=== PATIENT | male | born 1980 | race Caucasian/White ===

== ENCOUNTER 2018-05-30 11:31 | Emergency (ER) | payer MEDICAID ==
[~2018-05-30] VITALS: Ht 180.3 cm; Wt 107.5 kg
[~2018-05-30 11:31] MED LIST: ALBU8.5H8 IH; FLO0.4C PO; HYDR-569 PO; NAPR-1154 PO
[2018-05-30] MEDS ORDERED: LIDOcaine 1.5% w/epinephrine 1:200,000 5ml ampul IJ ONE (12:30)
[2018-05-30] MEDS ORDERED: TETanus/Pertussis (Acell)/Diphther VAC/PF (Tdap-Adult) 0.5ml syringe IM ONE (12:30)
[2018-05-30] MEDS ORDERED: METF500T PO (13:22)
[2018-05-30] MEDS ORDERED: SULF1TAB48 PO (13:22)
[2018-05-30] MEDS ORDERED: HYDR-569 PO (13:22)
[2018-05-30 13:41] VITALS: BP 134/82
== END 2018-05-30 13:42 | disposition home or self-care (01) ==
LOC: ER 11:32
DX: L02.416 Cutaneous abscess of left lower limb (principal); L03.116 Cellulitis of left lower limb; E11.9 Type 2 diabetes mellitus without complications; Z90.49 Acquired absence of other specified parts of digestive tract; Z79.84 Long term (current) use of oral hypoglycemic drugs; Z79.899 Other long term (current) drug therapy
CPT/HCPCS: 82948; 87070; 87077; 87186; 90471; 90715; 99284; J3490

== ENCOUNTER 2024-01-03 10:15 | Emergency (ER) | payer MEDICAID ==
[~2024-01-03] VITALS: Ht 180.3 cm; Wt 93.8 kg
[~2024-01-03 10:15] MED LIST changes: +ALBU8.5H17 IH; -ALBU8.5H8 IH; +HYDR-4383 PO; -HYDR-569 PO
[2024-01-03 10:48] VITALS: TEMP 98.2
[2024-01-03 11:59] VITALS: BP 133/103; PULSE 93; O2SAT 99
[2024-01-03] MEDS: dexamethasone sod phosphate 10mg/ml inj PO STA (15:48)
[2024-01-03] MEDS ORDERED: AZIT250T PO (15:49)
[2024-01-03] MEDS ORDERED: ALBU8HFA INH (15:49)
[2024-01-03] MEDS ORDERED: PRED20TA PO (15:49)
[2024-01-03] MEDS: ipratropium/albuterol 3ml nebule NEB STA (16:00)
[2024-01-03 16:01] VITALS: RESP 17
== END 2024-01-03 16:05 | disposition home or self-care (01) ==
LOC: ER 10:16
DX: J20.9 Acute bronchitis, unspecified (principal); Z90.49 Acquired absence of other specified parts of digestive tract; Z79.899 Other long term (current) drug therapy
CPT/HCPCS: 71045; 99283; J1100

== ENCOUNTER 2025-02-19 10:06 | Emergency (ER) | payer MEDICAID ==
[~2025-02-19] VITALS: Ht 180.3 cm; Wt 90.0 kg
[~2025-02-19 10:06] MED LIST changes: +AZIT250T PO; -FLO0.4C PO; +TAMS-55 PO
[2025-02-19 10:08] VITALS: BP 120/87; PULSE 103; RESP 16; TEMP 98.4; O2SAT 99
[2025-02-19] MEDS ORDERED: SULF-14 PO (10:35)
[2025-02-19] MEDS ORDERED: CEPH-585 PO (10:35)
[2025-02-19] MEDS: cephalexin 250mg capsule PO ONE (10:39)
[2025-02-19] MEDS: sulfamethoxazole/trimethoprim DS (800/160mg) tablet PO ONE (10:39)
== END 2025-02-19 10:40 | disposition home or self-care (01) ==
LOC: ER 10:06
DX: K13.0 Diseases of lips (principal); Z90.49 Acquired absence of other specified parts of digestive tract; Z79.899 Other long term (current) drug therapy; Z79.84 Long term (current) use of oral hypoglycemic drugs
CPT/HCPCS: 99283

== ENCOUNTER 2025-06-11 10:29 | Emergency (ER) | payer MEDICAID ==
[~2025-06-11] VITALS: Ht 180.3 cm; Wt 89.4 kg
[~2025-06-11 10:29] MED LIST changes: +CEPH-585 PO; +SULF-14 PO
[2025-06-11 10:30] VITALS: BP 123/79; PULSE 86; RESP 16; TEMP 97.7; O2SAT 99
--- NOTE | 2025-06-11 11:06 | Physician Documentation ---
History of Present Illness ~ Chief Complaint: Bite-insect Stated Complaint: INSECT BITES Time Seen by MD: 11:00 OK to notify your PCP?: Yes Primary Medical Doctor: Herb Oropeza Source: patient Mode of Arrival: POV Exam Limitations: no limitations HPI 44-year-old male presents with bilateral arm wounds for the past 2 days. He has a history of MRSA. He states they started to look like insect bites but then t he redness has been spreading from his bilateral forearms up to his elbows and a couple of the sores have opened and had purulent drainage. Has not taken anything for the pain prior to arrival. Medication Reconciliation Allergies: Coded Allergies: No Known Allergies (Unverified , 06/11/25) Scheduled Azithromycin (Zithromax), 1 TAB PO UD Cephalexin*Monohydrate* (Keflex*), 1 CAP PO QID Cephalexin*Monohydrate* (Keflex*), 1 CAP PO Q8H Hydrocodone/Acetaminophen (Argyle 5-325 Tablet), 1 TAB PO TID PRN Hydrocodone/Acetaminophen (Argyle 5-325 Tablet), 1 TAB PO Q12H PRN Naproxen (Naprosyn), 1 TABLET PO BID Sulfamethoxazole/Trimethoprim (Septra Ds Tab), 1 TAB PO Q12H Sulfamethoxazole/Trimethoprim SS Tab* (Bactrim SS Tablet*), 1 TAB PO Q12H Tamsulosin Hcl* (Flomax*), 1 CAP PO DAILY Scheduled PRN Albuterol Sulfate (Proair Hfa), 2 PUFFS IH Q4H PRN for SOB or wheezing Hydrocodone/Acetaminophen (Argyle 5-325 Tablet), 1 TABLET PO TID PRN for pain Past Medical History Past Medical History: No Pertinent History Past Surgical History: cholecystectomy Alcohol Use: None Lives In: Home Review of Systems All Other Systems at this time: Reviewed and Negative Physical Exam Vital Signs: RN Vital Signs have been reviewed: Yes, Temperature: 97.7, Source: Oral, Heart Rate: 86, Respiratory Rate: 16, BP: 123/79, Pulse Oximetry: 99, Weig ht: 89.400 Oxygen Flow Rate: 0 Pulse Oximetry Reflects: adequate oxygenation Physical Exam General: Alert, no distress. HEENT: No injection, moist mucous membranes. Neck: Full range of motion. Respiratory: No respiratory distress, equal chest rise and fall. Chest: No accessory muscle use. Cardiovascular: Regular rate and rhythm. Gastrointestinal: Nondistended. Extremities: Normal range of motion, no deformity. Full range motion of both arms. Neurologic: Oriented x4. Psychiatric: Normal mood and affect. Skin: Right forearm: Erythematous, warmth, tenderness to palpation with multiple papules approximately 9 cm x 6 cm of swelling up to the elbow. Left forearm: Erythematous, warmth, tenderness to palpation with multiple papules approximately 5 cm x 6 cm, slight edema at site. Progress Results/Orders Reviewed/noted all lab results: Yes Results/Orders Completed Orders - AYLIN HANKINS [employer] Sulfamethox/Trimetho. Ds Tab (Septra Ds (06/11/25 11:05) Naproxen Tablet (Naprosyn Tablet) (06/11/25 11:05) Acetaminophen 325mg Tablet (Tylenol Tabl (06/11/25 11:05) Cephalexin Capsule (Keflex Capsule) (06/11/25 11:05) Medications Received in ER Medications (Trade) Dose Ordered Sig/Emy Route PRN Reason Start Time Stop Time Status Last Admin Dose Admin (Keflex capsule) 500 mg ONCE ONCE PO 06/11/25 11:05 06/11/25 11:07 DC 06/11/25 11:13 500 MG (Septra DS tab) 1 tab ONCE ONCE PO 06/11/25 11:05 06/11/25 11:10 DC 06/11/25 11:14 1 TAB (Naprosyn tablet) 500 mg ONCE ONCE PO 06/11/25 11:05 06/11/25 11:06 DC 06/11/25 11:14 500 MG (Tylenol tablet) 650 mg ONCE ONCE PO 06/11/25 11:05 06/11/25 11:06 DC 06/11/25 11:14 650 MG Vital Signs 06/11/25 10:30 Temp 97.7 Pulse 86 Resp 16 B/P (MAP) 123/79 Pulse Ox 99 O2 Flow Rate 0 Medical Decision Making Additional info obtained from: old records Findings 44-year-old male with bilateral forearm wounds. History of MRSA so I treated with Septra and Keflex 1st dose given in the department the rest sent to the pharmacy. For the discomfort I ordered Tylenol and naproxen. His vital signs are stable and there does not appear to be any signs of sepsis. I gave him strict return instructions as if this does not improve he may need to be admitted for IV antibiotics. He agrees to this plan. Differential Dx:Considerations: Include: Abscess, Impetigo, Osteomyelitis, Psoriaisis, Scabies, Varicella Departure Disposition: 01 HOME / SELF CARE / HOMELESS Impression: Primary Impression: Cellulitis Additional Impression: Hx MRSA infection Condition: Stable Discharge Instructions: Cellulitis, Adult Additional Instructions: Follow up with your primary care provider within the next 3 days to assess wounds for worsening redness or spreading infection. Please take all antibiotics as prescribed and finish the course. Return back here for any new or worsening symptoms. Referrals: NO PRIMARY CARE PROVIDER (PCP) Prescriptions Sulfamethoxazole/Trimethoprim (Septra Ds Tab) 800 Mg/160 Mg Tablet 1 TAB PO Q12H for 10 Days, #20 TAB Prov: AYLIN HANKINS 06/11/25 Cephalexin*Monohydrate* (Keflex*) 500 Mg Capsule 1 CAP PO Q8H for 10 Days, #30 CAP Prov: AYLIN HANKINS 06/11/25 Education Educated: Patient Educated regarding: diagnosis, treatment, prognosis, need for follow up Additional Comment Medical Screen Exam This patient recieved a medical screening examination. After reviewing the individual's medical complaints with presenting symptoms and performing an appropriate physical examination, it was determined that no immediate life- threatening emergency medical condition is present. This individual is also not a women having contractions. Signature Scribe Signature: . Attestation: Scribed for Aylin Hankins by Aylin Wang NP . 06/11/25 12:02 Parts of this note were created using [employer] voice recognition software program. While efforts were made to correct any mistakes made by this voice recognition software program, nonsensical phrases may remain in this note. In addition, there may be errors and syntax, grammar, content and spelling. AYLIN HANKINS Jun 11, 2025 11:06
[2025-06-11] MEDS: sulfamethoxazole/trimethoprim DS (800/160mg) tablet PO ONE (11:14)
[2025-06-11] MEDS ORDERED: SULF1TAB45 PO (11:40)
[2025-06-11] MEDS ORDERED: CEPH-585 PO (11:40)
== END 2025-06-11 11:44 | disposition home or self-care (01) ==
LOC: ER 10:29
DX: L03.114 Cellulitis of left upper limb (principal); Z86.14 Personal history of Methicillin resistant Staphylococcus aureus infection; Z90.49 Acquired absence of other specified parts of digestive tract
CPT/HCPCS: 99284; A6449